=== PATIENT | female | born 2005 | race Caucasian/White ===

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

== ENCOUNTER 2023-07-29 18:13 | Emergency (ER) | payer MEDICAID, SELFPAY ==
[2023-07-29 18:24] VITALS: BP 111/75; PULSE 94; RESP 17; TEMP 36.7; O2SAT 98; BMI 19.7
--- NOTE | 2023-07-29 18:40 | ED_ITS ---
HPI - URI/Sore Throat General: Chief Complaint: Upper Respiratory Infection Stated Complaint: sore throat , cough, sneezing Time Seen by Provider: 07/29/23 18:17 History of Present Illness: 18-year-old female comes in today for il lness x 5 days. Patient reports a sore throat. Patient states that she feels much better today but had to be checked out due to calling out of work. Review of Systems General: Reports: 10 or more systems reviewed and unremarkable except in HPI and below ENMT: Reports: throat pain PFSH ED PFSH: Medical History (Updated 07/29/23 @ 18:55 by MARIE Guzman) No pertinent past medical history neg hx: htn,dm,thryoid,dvt/pe Surgical History No pertinent past surgical history Family History Grandmother Diabetes Maternal grandmother Denies family history of Colon cancer Ovarian cancer Heart disease Hyperlipidemia Breast cancer Family history of thyroid problem Hypertension Uterine cancer Stroke Social History Substance/Drug Use: never Physical Exam Const: COMMON NORMALS: alert HENMT: THROAT: posterior oropharynx normal Neck/C-Spine: COMMON NORMALS: full ROM Resp: COMMON NORMALS: normal respiratory effort and clear to auscultation bilaterally AUSCULTATION: clear to auscultation bilaterally Cardio: COMMON NORMALS: regular rate RATE: regular rate Back/Pelvis: COMMON NORMALS: thoracic and lumbar spine normal to inspection Extremity: COMMON NORMALS: full ROM Neuro: SENSORIUM/ORIENTATION: Yes alert Skin: COMMON NORMALS: turgor normal GENERAL SKIN EXAM: turgor normal Course Vital Signs: Vital signs: Vital Signs Temperature 98.1 F 07/29/23 18:24 Pulse Rate 94 07/29/23 18:24 Respiratory Rate 17 07/29/23 18:24 Blood Pressure 111/75 07/29/23 18:24 Pulse Oximetry 98 07/29/23 18:24 Oxygen Delivery Me thod Room Air 07/29/23 18:24 MDM - URI/Sore Throat Medical Decision Making Patient comes in for respiratory infection x 5 days. On exam posterior pharynx is pink and moist. Lungs are clear to auscultation. No edema is noted in the extremities. Patient moves all extremities well. Differential diagnosis includes strep pharyngitis, upper respiratory infection, malingering. Strep test was negative. Reviewed exam with patient with recommendations for tr eatment and follow-up. Offered a shot of dexamethasone but patient refused. Patient states that she was actually feeling pretty good today and just needed to be checked out to go back to work. Patient was cleared to go back to work. Lab Data Laboratory Results Group A Strep Rapid Negative (Negative) 07/29/23 18:40 No radiology studies performed this visit Discharge Plan Discharge Patient Disposition: Home Clinical Impression: Pharyngitis Qualifiers: Pharyngitis/tonsillitis etiology: unspecified etiology Qualified Code(s): J02.9 - Acute pharyngitis, unspecified Condition: Stable Prescriptions: No Action norethindrone ac-eth estradiol [ (21)] 1.5-30 mg-mcg tablet 1 tab PO DAILY Qty: 63 0RF Discharge Orders: Discharge ED (Routine); Ordered 07/29/23 Ordered By: Pee Buck Discharge Diet: Usual diet Discharge Activity: Increase activity as tolerated Patient Instructions: Pharyngitis (ED) Activity Restrictions/Additional Instructions: Drink plenty of water and fluids. Acetaminophen and ibuprofen for pain. You have been given a shot of dexamethasone 10 mg which will help with the pain and inflammation and usually helps with recovery of a viral pharyngitis. Follow-up with primary care as needed. Return to ED for new concerns. 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
[2023-07-29 18:51] LABS: Rapid Strep A Test Negative (Negative)
== END 2023-07-29 19:07 | disposition home or self-care (01) ==
PROVIDERS: Emergency Provider Nurse Practitioner Family
DX: J02.9 Acute pharyngitis, unspecified (principal)
CPT/HCPCS: 87081; 87880; 99283

== ENCOUNTER 2023-07-31 23:00 | Emergency (ER) | payer MEDICAID, SELFPAY ==
[2023-07-31 23:11] VITALS: BP 121/79; PULSE 87; RESP 16; TEMP 36.7; O2SAT 98
--- NOTE | 2023-07-31 23:48 | ED_ITS ---
Documented by User: DARY Salcedo 08/01/23 01:04 HPI - URI/Sore Throat General: Chief Complaint: Upper Respiratory Infection Stated Complaint: Swollen Toncils Time Seen by Provider: 07/31/23 23:10 Source: patient Mode of arrival: ambulatory Limitations: no limitations History of Present Illness: Patient is a 18-year-old female presenting to the emergency department complaining of sore throat for the past 1 to 2 weeks. States she was seen 2 days ago here and had a negative strep swab. She does state that her pain is not worsening, just is not improving and she is not sure why it will not go away. She denies any fevers, chills, or any other symptoms but does note she is a little nauseous. She still has her tonsils. Associated symptoms: Reports nausea; Deny abdominal pain, chills, chest pain, diarrhea, ear or mastoid pain, fever(s), headache(s) or vomiting Review of Systems General: Reports: 10 or more systems reviewed and unremarkable except in HPI and below Const: Denies: fever(s), chills or fatigue Eyes: Denies: change in vision ENMT: Reports: throat pain; Denies: ear or mastoid pain or nasal discharge Card: Denies: chest pain, palpitations, swelling of feet/ankles or lightheadedness Resp: Denies: dyspnea, productive cough or wheezing GI: Reports: nausea; Denies: abdominal pain, vomiting, diarrhea or constipation : Denies: flank pain, difficulty voiding, dysuria or urinary frequency Musc: Denies: neck pain, back pain or joint pain Skin/Breast: Denies: rash Neuro: Denies: headache(s), numbness in extremities or weakness in extremities PFS ED PFSH: Medical History (Updated 08/01/23 @ 00:59 by DARY Salcedo) No pertinent past medical history neg hx: htn,dm,thryoid,dvt/pe Surgical History No pertinent past surgical history Family History Grandmother Diabetes Maternal grandmother Denies family history of Colon cancer Ovarian cancer Heart disease Hyperlipidemia Breast cancer Family history of thyroid problem Hypertension Uterine cancer Stroke Social History Substance/Drug Use: never Female Reproductive History: Date of last menstrual period: 07/18/23 Physical Exam Const: COMMON NORMALS: no acute distress and healthy appearing GENERAL APPEARANCE: cooperative, comfortable and well developed HENMT: COMMON NORMALS: normocephalic, atraumatic, hearing grossly normal bilaterally, external ears normal, EAC's normal, TM's normal bilaterally, Normal external nose present and Normal nasal mucous membranes and turbinates present HEAD & SCALP: normal to inspection, normocephalic and atraumatic FACE & SINUS: normal facial exam and sinuses nontender NOSE: Normal external nose present, Normal nares present, No nasal polyps present and Normal nasal mucous membranes and turbinates present EXTERNAL EAR: Yes external ears normal EXTERNAL AUDITORY CANAL: EAC's normal TYMPANIC MEMBRANE: TM's normal bilaterally MOUTH: Normal oral and palatal mucosa present THROAT: abnormal tonsil bilateral erythema and hypertrophy and posterior oropharynx abnormal erythema Eye: COMMON NORMALS: EOMs intact bilaterally, conjunctivae normal and normal visual mejia by confrontation GENERAL EYE: appearance normal, both eyes and all related structures CONJUNCTIVA: Yes conjunctivae normal Neck/C-Spine: COMMON NORMALS: full ROM, no lymphadenopathy, supple and no meningeal signs GENERAL: Yes normal visual inspection Chest: COMMONS NORMALS: normal inspection of the chest Resp: COMMON NORMALS: normal respiratory effort and clear to auscultation bilaterally EFFORT & INSPECTION: Yes able to speak in complete sentences AUSCULTATION: clear to auscultation bilaterally Cardio: COMMON NORMALS: regular rate, regular rhythm, S1 normal heart sound present and S2 normal heart sound present RATE: regular rate RHYTHM: reg ular rhythm HEART SOUNDS: S1 normal heart sound present, S2 normal heart sound present, no gallops, no murmurs and no rubs Extremity: COMMON NORMALS: normal to inspection, full ROM and capillary refill normal Neuro: MENINGEAL SIGNS: Yes no meningeal signs Skin: COMMON NORMALS: no rashes or lesions noted GENERAL SKIN EXAM: no rashes or lesions noted Course Vital Signs: Vital signs: Vital Signs Temperature 98.1 F 07/31/23 23:11 Pulse Rate 87 07/31/23 23:11 Respiratory Rate 16 07/31/23 23:11 Blood Pressure 121/79 07/31/23 23:11 Pulse Oximetry 98 04/27/24 23:11 MDM - URI/Sore Throat Medical Decision Making This patient was seen for 1 to 2 weeks of sore throat. She was seen couple days ago where she had a negative strep. She states that her pain has persisted. Rapid strep today was also negative. I offered her viscous lidocaine, but she denied stating that this would only make it worse. I informed her that she likely has a viral pharyngitis and that this is supportive treatment and she can continue to alternate Tylenol and ibuprofen for pain. She agrees with this plan. I did tell her to follow-up with primary care if her symptoms continue for potential ENT referral. She also understands this. Other return precautions are given. Lab Data I reviewed the patient's lab results. Laboratory Results Adenovirus (PCR) Not detected (NOT DETECT) 08/01/23 00:34 C. pneumoniae DNA (PCR) Not detected (NOT DETECT) 08/01/23 00:34 Coronavirus 229E (PCR) Not detected (NOT DETECT) 08/01/23 00:34 Human Metapneumovir PCR Not detected (NOT DETECT) 08/01/23 00:34 Influenza A (H1) PCR Not detected (NOT DETECT) 08/01/23 00:34 Influ A (H1/09) PCR Not detected (NOT DETECT) 08/01/23 00:34 Influenza A (H3) PCR Not detected (NOT DETECT) 08/01/23 00:34 Influenza Type A (PCR) Not detected (NOT DETECT) 08/01/23 00:34 Influenza Type B (PCR) Not detected (NOT DETECT) 08/01/23 00:34 M. pneumoniae (PCR) Not detected (NOT DETECT) 08/01/23 00:34 Parainfluenza 1 (PCR) Not detected (NOT DETECT) 08/01/23 00:34 Parainfluenza 2 (PCR) Not detected (NOT DETECT) 08/01/23 00:34 Parainfluenza 3 (PCR) Not detected (NOT DETECT) 08/01/23 00:34 Parainfluenza 4 (PCR) Not detected (NOT DETECT) 08/01/23 00:34 RSV Type A (PCR) Not detected (NOT DETECT) 08/01/23 00:34 RSV Type B (PCR) Not detected (NOT DETECT) 08/01/23 00:34 Entero/Rhino (PCR) Detected (NOT DETECT) A 08/01/23 00:34 SARS-CoV-2 (PCR) Not detected (NOT DETECT) 08/01/23 00:34 Group A Strep Rapid Negative (Negative) 08/01/23 00:34 No radiology studies performed this visit Discharge Plan Discharge Patient Disposition: Home Clinical Impression: Pharyngitis Qualifiers: Pharyngitis/tonsillitis etiology: unspecified etiology Qualified Code(s): J02.9 - Acute pharyngitis, unspecified Condition: Stable Prescriptions: No Action norethindrone ac-eth estradiol [ (21)] 1.5-30 mg-mcg tablet 1 tab PO DAILY Qty: 63 0RF Discharge Orders: Discharge ED (Routine); Ordered 08/01/23 Ordered By: Mathew Fregoso Discharge Diet: As Directed Discharge Activity: Resume usual activity Patient Instructions: Pharyngitis (ED) Activity Restrictions/Additional Instructions: Avoid hot or spicy foods or anything that might worsen your sore throat. Your strep test was negative today. Tylenol and ibuprofen for pain. Follow-up with primary care as needed. Return if you have any new or concerning symptoms. 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[employer] Documented by User: Gen Hammond DO 08/05/23 06:06 HPI - URI/Sore Throat General: Chief Complaint: Upper Respiratory Infection Stated Complaint: Swollen Toncils Time Seen by Provider: 07/31/23 23:10 [facility] ED PFSH: Medical History (Updated 08/01/23 @ 00:59 by DARY Salcedo) No pertinent past medical history neg hx: htn,dm,thryoid,dvt/pe Surgical History No pertinent past surgical history Family History Grandmother Diabetes Maternal grandmother Denies family history of Colon cancer Ovarian cancer Heart disease Hyperlipidemia Breast cancer Family history of thyroid problem Hypertension Uterine cancer Stroke Social History Substance/Drug Use: never Course Vital Signs: Vital signs: Vital Signs Temperature 98.1 F 07/31/23 23:11 Pulse Rate 87 07/31/23 23:11 Respiratory Rate 16 07/31/23 23:11 Blood Pressure 121/79 07/31/23 23:11 Pulse Oximetry 98 07/31/23 23:11 MDM - URI/Sore Throat Medical Decision Making This patient was seen for 1 to 2 weeks of sore throat. She was seen couple days ago where she had a negative strep. She states that her pain has persisted. Rapid strep today was also negative. I offered her viscous lidocaine, but she denied stating that this would only make it worse. I informed her that she likely has a viral pharyngitis and that this is supportive treatment and she can continue to alternate Tylenol and ibuprofen for pain. She agrees with this plan. I did tell her to follow-up with primary care if her symptoms continue for potential ENT referral. She also understands this. Other return precautions are given. Chart reviewed Lab Data Laboratory Results Adenovirus (PCR) Not detected (NOT DETECT) 08/01/23 00:34 C. pneumoniae DNA (PCR) Not detected (NOT DETECT) 08/01/23 00:34 Coronavirus 229E (PCR) Not detected (NOT DETECT) 08/01/23 00:34 Human Metapneumovir PCR Not detected (NOT DETECT) 08/01/23 00:34 Influenza A (H1) PCR Not detected (NOT DETECT) 08/01/23 00:34 Influ A (H1/09) PCR Not detected (NOT DETECT) 08/01/23 00:34 Influenza A (H3) PCR Not detected (NOT DETECT) 08/01/23 00:34 Influenza Type A (PCR) Not detected (NOT DETECT) 08/01/23 00:34 Influenza Type B (PCR) Not detected (NOT DETECT) 08/01/23 00:34 M. pneumoniae (PCR) Not detected (NOT DETECT) 08/01/23 00:34 Parainfluenza 1 (PCR) Not detected (NOT DETECT) 08/01/23 00:34 Parainfluenza 2 (PCR) Not detected (NOT DETECT) 08/01/23 00:34 Parainfluenza 3 (PCR) Not detected (NOT DETECT) 08/01/23 00:34 Parainfluenza 4 (PCR) Not detected (NOT DETECT) 08/01/23 00:34 RSV Type A (PCR) Not detected (NOT DETECT) 08/01/23 00:34 RSV Type B (PCR) Not detected (NOT DETECT) 08/01/23 00:34 Entero/Rhino (PCR) Detected (NOT DETECT) A 08/01/23 00:34 SARS-CoV-2 (PCR) Not detected (NOT DETECT) 08/01/23 00:34 Group A Strep Rapid Negative (Negative) 08/01/23 00:34 Discharge Plan Discharge Patient Disposition: Home Clinical Impression: Pharyngitis Qualifiers: Pharyngitis/tonsillitis etiology: unspecified etiology Qualified Code(s): J02.9 - Acute pharyngitis, unspecified Condition: Stable Prescriptions: No Action norethindrone ac-eth estradiol [ (21)] 1.5-30 mg-mcg tablet 1 tab PO DAILY Qty: 63 0RF Discharge Orders: Discharge ED (Routine); Ordered 08/01/23 Ordered By: Mathew Fregoso Discharge Diet: As Directed Discharge Activity: Resume usual activity Patient Instructions: Pharyngitis (ED) Activity Restrictions/Additional Instructions: Avoid hot or spicy foods or anything that might worsen your sore throat. Your strep test was negative today. Tylenol and ibuprofen for pain. Follow-up with primary care as needed. Return if you have any new or concerning symptoms. 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
[2023-08-01 00:48] LABS: Rapid Strep A Test Negative (Negative)
[2023-08-01 02:22] LABS: Adenovirus Not Detected (NOT DETECT); Chlamydia Pneumoniae Not Detected (NOT DETECT); Coronavirus 229E,HKU1,NL63,OC4 Not Detected (NOT DETECT); Human Metapneumovirus Not Detected (NOT DETECT); Human Rhinovirus/Enterovirus Detected (NOT DETECT); Influenza A Not Detected (NOT DETECT); Influenza A H1 Not Detected (NOT DETECT); Influenza A H1-2009 Not Detected (NOT DETECT); Influenza A H3 Not Detected (NOT DETECT); Influenza B Not Detected (NOT DETECT); Mycoplasma Pneumoniae Not Detected (NOT DETECT); Parainfluenza Virus Type 1 Not Detected (NOT DETECT); Parainfluenza Virus Type 2 Not Detected (NOT DETECT); Parainfluenza Virus Type 3 Not Detected (NOT DETECT); Parainfluenza Virus Type 4 Not Detected (NOT DETECT); Respiratory Syncytial Virus A Not Detected (NOT DETECT); Respiratory Syncytial Virus B Not Detected (NOT DETECT); SARS-COV-2 Not Detected (NOT DETECT)
== END 2023-08-01 01:14 | disposition home or self-care (01) ==
PROVIDERS: Emergency Provider Physician Assistant
DX: J02.9 Acute pharyngitis, unspecified (principal); Z11.52 Encounter for screening for COVID-19
CPT/HCPCS: 87081; 87486; 87581; 87633; 87880; 99283